=== PATIENT | male | born 1985 | race African-American/Black ===

== ENCOUNTER 2023-01-19 20:32 | Emergency (ER) | payer MEDICAID, OTHER ==
[~2023-01-19] VITALS: Ht 177.8 cm; Wt 82.0 kg
[2023-01-19] MEDS ORDERED: CYCL-837 PO (22:39)
[2023-01-19] MEDS ORDERED: IBUP800T27 PO (22:39)
[2023-01-19 22:55] VITALS: BP 122/64
== END 2023-01-19 22:55 | disposition home or self-care (01) ==
LOC: ER 20:32
DX: S16.1XXA Strain of muscle, fascia and tendon at neck level, initial encounter (principal); S29.012A Strain of muscle and tendon of back wall of thorax, initial encounter; R51.9 Headache, unspecified; F12.10 Cannabis abuse, uncomplicated; V43.52XA Car driver injured in collision with other type car in traffic accident, initial encounter; Y93.89 Activity, other specified; Y92.89 Other specified places as the place of occurrence of the external cause; Y99.8 Other external cause status
CPT/HCPCS: 70450; 72125; 72128